=== PATIENT | male | born 1980 | race Caucasian/White ===

== ENCOUNTER 2017-05-01 13:20 | Day surgery (SDC) | payer BC ==
--- NOTE | ~2017-05-01 | OP ---
Record Of Operation [facility] [address] [place]. [address] NAME: BETHANY ROBLERO : 78 STATUS : [facility]#: [id number] AGE: 37 ADM/REG DATE : 05/01/17 MR#: [id number] REPORT SERV DATE: 05/05/17 DICTATED BY: Tito RAMSEY DATE: 05/05/17 REPORT STATUS : Draft TRANSCRIBED BY: NITA DATE: 05/05/17 DATE OF PROCEDURE: 05/01/2017 PREOPERATIVE DIAGNOSIS: Mass, right cheek, large cyst. POSTOPERATIVE DIAGNOSIS: Mass, right cheek, large cyst; permanent path pending. NAME OF THE OPERATION: Excision of mass, right cheek via combined right lower eyelid incision and flap as well as cheek incision in the right infraorbital area. FINDINGS: A 2.7 cm mass in the right upper cheek and infraorbital area with extensive attachment to the skin. INDICATION: This 37-year-old gentleman has had a mass growing in the right cheek for at least a year. He presents for excision. The pros and cons, alternatives, benefits, risks, limitations, and complications (including, but not limited to scarring, recurrence of the mass, dimpling of the skin, sunken in area of the cheek, nerve injury, reaction to suture, infection, imponderables) were discussed at length. No guarantees expressed. He understands and wishes to proceed. We did discuss that he probably would have two incisions, one in the lower eyelid and then probably one in the cheek to remove any attachments of the cyst to the skin as there is a skin pore. DESCRIPTION OF PROCEDURE: He was taken into the operating room and given general oral endotracheal anesthesia in the supine position. The entire face and neck were prepped with Hibiclens and saline followed by isopropyl alcohol, except in the area of the eye, which was prepped with a diluted Betadine solution, diluted with saline. Sterile drapes were applied. The mass was marked with a tiny ellipse overlying the skin pore, overlying this mass, to remove the skin pore. A right lower eyelid incision was marked out on the opposite left side and then measurements were made on the right side to correspond with the marked out incision on the left. This was to properly place the incision, which was somewhat distorted by the mass pulling on the lower eyelid. The lower eyelid and the cheek were injected with 1% Xylocaine with 1:100,000 epinephrine and 0.5% Marcaine with 1:200,000 epinephrine. Five minutes elapsed for vasoconstriction. Incision in the right lower eyelid measured approximately 3 cm, and it was incised with a #15 blade, and a skin flap was elevated in the plane above the orbicularis oculi muscle down into the cheek and a slow tedious dissection of the mass was accomplished. The skin was extensively involved with the mass which was not apparent at the preop evaluation. The skin involvement was excised. The cyst wall was removed entirely. In the process of removing the most deepest portion of the cyst along the side of the cyst, the cyst ruptured, but this was after the dissection on the side had been accomplished, so there was no possibility of cyst wall being retained in the tissues. The wound was copiously irrigated with saline. The lower eyelid incision was closed with a few interrupted 6-0 Vicryl sutures deep particularly in the lateral portion, and the rest closed with Dermabond and a few interrupted 6-0 Prolene sutures. The cheek fenestra, that was caused by removal of the skin that was involved with the attachment of the cyst was then treated as a longer ellipse of skin removal and closed with 6-0 and 5-0 Vicryl deep. The skin edges were coapted with 6-0 Prolene. Hemostasis was excellent at the end of the Record Of Operation [address] [address] NAME: BETHANY ROBLERO : 78 STATUS : [facility]#: [id number] AGE: 37 ADM/REG DATE : 05/01/17 MR#: [id number] REPORT SERV DATE: 05/05/17 DICTATED BY: Tito RAMSEY DATE: 05/05/17 REPORT STATUS : Draft TRANSCRIBED BY: NITA DATE: 05/05/17 procedure, and it had been obtained during the process of removal of the cyst with the Casey-needle tip cautery for dissection and for hemostasis. The skin edges were cleansed with hydrogen peroxide and dried. Mastisol and paper tape were applied in multiple layers in an antitension fashion. He was awakened, extubated, and taken to the recovery room in good condition having tolerated the procedure well. Home-going instructions included a prescription for cephalexin, hydrocodone, and Zofran. Recheck in the office in six days. RANGEL/NITA Tito Ramsey M.D. / [id number] CC: Tito Ramsey M.D.
== END 2017-05-01 20:53 | disposition home or self-care (01) ==
LOC: SDC 13:20
PROVIDERS: Specialist
PROC: 0HB1XZZ Excision of Face Skin, External Approach (ICD-10-PCS; 2017-05-01)
PROC: 0HQ1XZZ Repair Face Skin, External Approach (ICD-10-PCS; principal; 2017-05-01 15:00)
DX: L72.0 Epidermal cyst (principal); Z79.2 Long term (current) use of antibiotics
CPT/HCPCS: 88304; J0690; J2250; J2405; J2710; J3010